=== PATIENT | female | born 1955 | race Two or more races ===

== ENCOUNTER 2018-05-31 13:12 | Outpatient (CLI) | payer OTHER | END 2018-05-31 15:32 | disposition home or self-care (01) | LOC: NUCLEAR 13:12 | DX: M81.0 Age-related osteoporosis without current pathological fracture (principal) ==

== ENCOUNTER 2019-11-02 10:17 | Outpatient (CLI) | payer OTHER | END 2019-11-02 16:06 | disposition home or self-care (01) | LOC: MAMO-SONO 10:17 | DX: Z12.31 Encounter for screening mammogram for malignant neoplasm of breast (principal); Z87.898 Personal history of other specified conditions; J10.1 Influenza due to other identified influenza virus with other respiratory manifestations ==

== ENCOUNTER 2020-01-19 09:30 | Outpatient (CLI) | payer OTHER | END 2020-01-19 09:41 | disposition home or self-care (01) | LOC: MRI 09:30 | DX: D32.0 Benign neoplasm of cerebral meninges (principal) | CPT/HCPCS: 70553 ==

== ENCOUNTER 2020-12-17 10:27 | Outpatient (CLI) | payer OTHER | END 2020-12-17 10:40 | disposition home or self-care (01) | LOC: MAMO-SONO 10:27 | PROVIDERS: ATTEND Obstetrics & Gynecology | DX: N60.02 Solitary cyst of left breast (principal); N60.01 Solitary cyst of right breast; Z12.31 Encounter for screening mammogram for malignant neoplasm of breast; N64.59 Other signs and symptoms in breast ==

== ENCOUNTER 2020-12-23 13:29 | Outpatient (CLI) | payer OTHER | END 2020-12-23 13:39 | disposition home or self-care (01) | LOC: NUCLEAR 13:29 | PROVIDERS: ATTEND Internal Medicine | DX: M81.0 Age-related osteoporosis without current pathological fracture (principal) ==

== ENCOUNTER 2021-12-30 12:27 | Outpatient (CLI) | payer OTHER | END 2021-12-30 12:47 | disposition home or self-care (01) | LOC: MAMO-SONO 12:27 | PROVIDERS: ATTEND Obstetrics & Gynecology | DX: N60.12 Diffuse cystic mastopathy of left breast (principal); N60.11 Diffuse cystic mastopathy of right breast ==

== ENCOUNTER 2022-04-14 14:32 | Outpatient (CLI) | payer OTHER | END 2022-04-14 14:33 | disposition home or self-care (01) | LOC: RAD 14:32 | PROVIDERS: ATTEND Physical Medicine & Rehabilitation | DX: M54.59 Other low back pain (principal) ==

== ENCOUNTER 2022-08-14 12:39 | Outpatient (CLI) | payer OTHER | END 2022-08-14 12:41 | disposition home or self-care (01) | LOC: RAD 12:39 | PROVIDERS: ATTEND Physical Medicine & Rehabilitation | DX: M54.59 Other low back pain (principal) ==

== ENCOUNTER 2023-03-30 10:47 | Outpatient (CLI) | payer OTHER | END 2023-03-30 10:56 | disposition home or self-care (01) | LOC: MAMO-SONO 10:47 | PROVIDERS: ATTEND Obstetrics & Gynecology | DX: N60.11 Diffuse cystic mastopathy of right breast (principal); N60.12 Diffuse cystic mastopathy of left breast ==

== ENCOUNTER 2024-02-11 13:01 | Outpatient (CLI) | payer OTHER | END 2024-02-11 13:07 | disposition home or self-care (01) | LOC: RAD 13:01 | PROVIDERS: ATTEND Physical Medicine & Rehabilitation | DX: M25.572 Pain in left ankle and joints of left foot (principal) ==

== ENCOUNTER 2024-07-18 08:30 | Outpatient (CLI) | payer OTHER | END 2024-07-18 08:34 | disposition home or self-care (01) | LOC: TOM 08:30 | DX: Q44.6 Cystic disease of liver (principal) ==

== ENCOUNTER 2025-04-25 07:16 | Outpatient (CLI) | payer OTHER | END 2025-04-25 07:17 | disposition home or self-care (01) | LOC: NUCLEAR 07:16 | PROVIDERS: ATTEND Physical Medicine & Rehabilitation | DX: M06.4 Inflammatory polyarthropathy (principal) ==

== ENCOUNTER 2025-04-30 11:46 | Outpatient (CLI) | payer OTHER | END 2025-04-30 11:47 | disposition home or self-care (01) | LOC: NUCLEAR 11:46 | PROVIDERS: ATTEND Acupuncturist | DX: M81.0 Age-related osteoporosis without current pathological fracture (principal) ==

== ENCOUNTER 2025-05-01 11:58 | Outpatient (CLI) | payer OTHER | END 2025-05-01 12:03 | disposition home or self-care (01) | LOC: MAMO-SONO 11:58 | PROVIDERS: ATTEND Obstetrics & Gynecology | DX: N60.11 Diffuse cystic mastopathy of right breast (principal); N60.12 Diffuse cystic mastopathy of left breast ==